=== PATIENT | male | born 1960 | race Caucasian/White ===

== ENCOUNTER → 2016-09-03 | Outpatient (CLI) | payer BC ==
[~2016-09-03] MED LIST: ASPIRIN ENTERI325 M1 PO; ASPIRIN81 M2 PO; IBUPROFEN PO; LORTAB 10-3251 EACH PO; NEXIUM 24HR22.3 MG PO; SUDAFED PO
--- NOTE | ~2016-09-03 | CO ---
Unit #: [id number] #: [id number] Patient: DIA SLAUGHTER [id number] [address] [place], [place] [address] [id number] O MR#: [id number] NAME: DIA SLAUGHTER ROOM: Age: 56 Sex: M Admission Date: 09/03/2016 : 1960 Attending Physician: Alex Amador M.D. Primary Care Physician: Jonh Cintron Consultation Date: 09/03/2016 CONSULTATION REPORT REASON FOR CONSULTATION Preoperative medical evaluation prior to right total knee arthroplasty, scheduled by Dr. Amador for 09/15/2016. HISTORY OF PRESENT ILLNESS The patient is a 56-year-old male, who presents to preprocedure screening for the reasons indicated above. He reports right knee pain with ambulation. He has no pain at the time of this interview as he is seated. He denies chest, arm, back, jaw, neck pain or pressure. Denies dyspnea on exertion, shortness of air, PND, orthopnea, and known history of obstructive sleep apnea. Denies lightheadedness, dizziness, presyncope, syncope, palpitations. He denies a personal history of myocardial infarction, congestive heart failure, CVA, TIA, diabetes, or kidney disease. He has been evaluated by Dr. Amador and scheduled for the above referenced procedure. PAST MEDICAL HISTORY 1. Osteoarthritis. 2. BPH. 3. GERD. 4. Allergic rhinitis. PAST SURGICAL HISTORY 1. Right knee arthroscopy. 2. Please note the patient denies a personal or family history of complications to anesthesia. ALLERGIES Denies latex allergy. No known drug allergies. CURRENT MEDICATIONS 1. Nexium 24 hours, one cap p.o. daily p.r.n. for GERD. 2. Aspirin 81 mg p.o. daily. 3. Advil/Motrin 800 mg p.o. daily p.r.n. pain. 4. Pseudoephedrine HCl 30 mg p.o. daily p.r.n. for allergies. SOCIAL HISTORY Denies tobacco use, etoh use or illicit drug use. FAMILY HISTORY Mother and father both had myocardial infarctions. Sister melanoma. REVIEW OF SYSTEMS A 10-point review of systems is conducted and negative except as indicated Unit #: [id number] #: [id number] Patient: DIA SLAUGHTER under history of present illness above. PHYSICAL EXAMINATION VITAL SIGNS: Temperature 97.5, heart rate 70, respirations 20, blood pressure 165/99, oxygen saturation 95% on room air. GENERAL: Patient is a 56-year-old male awake, alert, in no acute distress. HEENT: Atraumatic, normocephalic. Sclerae anicteric. No discharge from eyes, ears, or nares. LYMPH: No preauricular, postauricular, tonsillar, submental, anterior, posterior, cervical adenopathy. ENDOCRINE: No thyromegaly, thyroid nodules or tenderness. LUNGS: Clear to auscultation all mireles bilaterally without wheezes, rhonchi or rales. HEART: S1, S2. Regular rate and rhythm, without murmur or rub. ABDOMEN: Bowel sounds positive x4. Soft, nontender, nondistended. EXTREMITIES: No edema, cyanosis, or clubbing. MUSCULOSKELETAL: Strength 5/5 all extremities bilaterally to flexion and extension. NEUROLOGIC: Alert and oriented x3. clear. Cranial nerves II-XII are grossly intact. DIAGNOSTIC STUDIES LABORATORY: WBC 5.5, hemoglobin 15.8, hematocrit 46.6, platelet count 172,000. Sodium 136, potassium 4.4, chloride 102, CO2 is 26, glucose 127, BUN 18, creatinine 1.0, calcium 9.7, AST 29, ALT 30, alkaline phosphatase 70, total bilirubin 0.7, total protein 7.5, albumin 4.6. Urinalysis negative with neither microscopic nor culture indicated. MRSA nasal swab report pending at this time. Blood type A positive, antibody screen negative. IMAGING: Two-view chest x-ray report pending at this time. CARDIOVASCULAR: 12-lead EKG normal sinus rhythm, normal ECG. Confirmed report pending at this time. ASSESSMENT AND PLAN The patient is a 56-year-old male who presents to preprocedural screening for: 1. Preoperative medical evaluation prior to right total knee arthroplasty as scheduled by Dr. Amador. The patient's Bear Revised Cardiac Risk Index is equal to 0.4%. This represents the patient's perioperative risk for cardiac , fatal or nonfatal myocardial infarction, cardiopulmonary arrest, arrhythmia and/or pulmonary edema. This has been discussed in detail with the patient and he wishes to proceed with surgery as scheduled at this time. 2. Benign prostatic hypertrophy. The patient is on no medications. Will monitor the patient for postoperative urinary retention. 3. Gastroesophageal reflux disease. I have advised the patient to take NSAIDs with food. Will continue proton pump inhibitor postoperatively. 4. Osteoarthritis. 5. Allergic rhinitis. 6. Elevated blood pressure. Patient does not take antihypertensive medication at this time. Will recommend discontinuation of Sudafed PE postoperatively and monitor blood pressure trend. Thank you for allowing us to participate in the care of this patient. We Unit #: [id number] #: [id number] Patient: DIA SLAUGHTER will gladly follow him for postoperative medical management pending order of Dr. Amador. Dictated by... Magaly Lemos A.P.R.N. for Alex Moore/maximo TD: 09/03/2016 16:25 JOB #: [id number] CONSULTATION REPORT Page 1 of 1 X Magaly Lemos APRN X CONSULTATION REPORT
--- NOTE | ~2016-09-03 | CR63 ---
[facility] A Service of [facility] RADIOLOGY TEXT RESULTS PATIENT: DIA SLAUGHTER LOCATION: [facility] : 58 UNIT #: [id number] AGE: [address]: Alex Amador MD SEX: M ORDER DR: [id number] [facility] [address] [place], [place] [address] [id number] O MR#: [id number] Acc #: [id number] NAME: DIA SLAUGHTER : 1960 SEX: M STUDY DATE/TIME: 09/03/2016 11:19 UNIT: [facility] ROOM: STUDY DESCRIPTION: CR Chest 2 View Attending Physician: Alex Amador M.D. Referring Physician: Alex Amador M.D. Ordering Physician: Alex Amador M.D. Primary Care Physician: Jonh Cintron MEDICAL IMAGING REPORT This report is preliminary unless electronic signature is present EXAM Chest PA and lateral 09/03/2016 HISTORY Osteoarthritis right knee. Preop right total knee replacement. Shortness of breath on exertion today. Smoking history for 3 years. FINDINGS PA and lateral examination of the chest upright shows a good expansion of the parenchyma with a normal distribution of the pulmonary vascularity. There is no indication of congestion, effusion, infiltrate, tumor, or nodular density. The pleural reflections and diaphragmatic contours are normal. The cardiac silhouette and mediastinal anatomy is within normal limits. IMPRESSION Normal chest. Dictated by... Nahid Mckinley M.D. THIS IS AN ELECTRONICALLY VERIFIED REPORT Nahid Mckinley M.D. at 09/04/2016 8:30 AM KRT/to TD: 09/03/2016 16:32 JOB #: [id number] MEDICAL IMAGING REPORT Page 1 of 1 COPY
--- NOTE | ~2016-09-03 | EKG ---
PATIENT: DIA SLAUGHTER UNIT #: [id number] Ventricular Rate: 71 BPM Atrial Rate: 71 BPM P-R Interval: 134 ms QRS Duration: 86 ms Q-T Interval: 386 ms QTC Calculation(Bezet): 419 ms P [place]: 36 degrees Calculated R [place]: 36 degrees Calculated T [place]: 24 degrees Diagnosis Line: Normal sinus rhythm Diagnosis Line: Normal ECG Diagnosis Line: No previous ECGs available Diagnosis Line: Confirmed by ARIAN LESTER MD ([id number]) on 09/03/2016 Diagnosis Line: 10:44:16 PM INTERPRETING MD: TAYLER RADER
[2016-09-03 11:14] LABS: HEMATOCRIT 46.6 % (38.0-50.0); HEMOGLOBIN 15.8 gm/dL (13.0-16.0); MEAN CELL VOLUME 83.7 FL (83-96); MEAN CORPUSCULAR HEMOGLOBIN 28.3 PG (28-34); MEAN CORPUSCULAR HGB CONC 33.8 g/dL (30-36); MEAN PLATELET VOLUME 8.1 FL (6.5-11.5); RED BLOOD COUNT 5.57 X10e (3.90-5.60); RED CELL DISTRIBUTION WIDTH 13.4 % (11.0-15.5); WHITE BLOOD COUNT 5.5 X10e3 (4.0-10.5)
[2016-09-03 11:27] LABS: URINE APPEARANCE CLEAR; URINE BILIRUBIN NEG (NEG); URINE BLOOD NEG (NEG); URINE COLOR YELLOW; URINE GLUCOSE NORM (NORM); URINE KETONE NEG (NEG); URINE LEUKOCYTE ESTERASE NEG (NEG); URINE NITRATE NEG (NEG); URINE PROTEIN NEG (NEG); URINE SPECIFIC GRAVITY 1.005 (1.003-1.035); URINE UROBILINOGEN NORM (NORM)
[2016-09-03 11:28] LABS: CULTURE INDICATED? NO; URINE SOURCE CLEAN CATCH
[2016-09-03 11:47] LABS: ALBUMIN SERUM 4.6 g/dL (3.5-5.0); BILIRUBIN,TOTAL 0.7 mg/dL (0.2-2.0); CALCIUM SERUM 9.7 mg/dL (8.4-10.2); GLOM FILT RATE Estimated 83.2 mL/min (>60); POTASSIUM 4.4 mmol/L (3.5-5.1); PROTEIN TOTAL SERUM 7.5 g/dL (6.0-8.3)
== END | disposition home or self-care (01) ==
LOC: CAMB 10:00
PROVIDERS: Orthopaedic Surgery
DX: Z01.818 Encounter for other preprocedural examination (principal); M17.11 Unilateral primary osteoarthritis, right knee
CPT/HCPCS: 36415; 71020; 80053; 81003; 85027; 86850; 86900; 86901; 87070; 93005

== ENCOUNTER 2016-09-15 07:45 | Inpatient (IN) | payer BC ==
--- NOTE | ~2016-09-15 | OR ---
Unit #: [id number] #: [id number] Patient: DIA SLAUGHTER [id number] [address] [address] [id number] I MR#: [id number] NAME: DIA SLAUGHTER ROOM: 453 Date of Procedure: 09/15/2016 Admission Date: 09/15/2016 Surgeon: Alex Amador M.D. : 1960 Attending Physician: Alex Amaodr M.D. Referring Physician: Alex Amador M.D. Primary Care Physician: Jonh Cintron OPERATIVE REPORT PREOPERATIVE DIAGNOSIS Primary localized osteoarthritis of the right knee. POSTOPERATIVE DIAGNOSIS Primary localized osteoarthritis of the right knee. PROCEDURE PERFORMED Right total knee. ASSISTANTS Victoria Esquivel and Alexx Pittman. ANESTHESIA Adductor canal block plus general. ESTIMATED BLOOD LOSS 100 mL. INDICATIONS FOR PROCEDURE This is a 56-year-old with severe pain in the right knee. The pain limits his walking and standing, interrupts his sleep. X-ray show he has [id number] with subchondral sclerosis and periarticular osteophytes. He has tried injections and anti-inflammatories with no relief of his discomfort. DESCRIPTION OF PROCEDURE The patient was brought to the operating room, given an adductor canal block. He was then given 2 g of Ancef. This will be continued postop, but discontinued within 23 hours the start time of surgery. He was then given a general anesthetic. Tourniquet was placed around the right thigh. The right leg was prepped and draped in a sterile fashion. Tourniquet was inflated to 250. A straight anterior skin incision was made. The subcutaneous dissected away and medial arthrotomy performed. The patella was slid to the side. Osteophytes were removed from the femur. The intramedullary guide was used and a 6-degree valgus cut was made on the distal femur. The femur was sized and found to be a size 4. The anterior-posterior cutting block was applied. Rotation was checked in the knee. Anterior and posterior cuts were made along with the chamfer cuts. Proximal tibial cut was made using a 0-degree cutting block. It was sized at a 3. The remaining meniscal fragments were debrided. Posterior condylar osteophytes were removed. The posterior capsule and the periosteum were injected with a ropivacaine. The tibia was sized at a 3. Unit #: [id number] #: [id number] Patient: DIA SLAUGHTER Trial 3 tibia with an 8 mm insert trial was positioned. Trial femur was applied. The drill holes were made for lugs on the femoral component. The knee came to full extension and good stability in extension and flexion. Rotation of the tibia was marked and the external alignment guide showed appropriate alignment of the limb. The patella was grasped with 2 towel clips, measured at 23 mm thick, cut smooth at 14, and a 38 patella was the appropriate size. The 3 drill holes were made. Trial patella applied and it tracked properly. We then removed all the trials, used the drill and punch for the tibial tray. The knee was irrigated and dried while the cement was mixed. Then, all 3 components were cemented simultaneously. Once again, it was a size 4 femur, size 3 tibia, and a 38 patella from the [employer] P[employer] Sigma Knee system. After the cement was hardened, the 8 mm insert was found to be the appropriate thickness, so it was opened and applied to the tray. The rest of the ropivacaine mixture was injected. The tourniquet was released. Hemostasis was obtained. Wound was irrigated with Betadine and bacitracin, and closed using 0 Ethibond in the arthrotomy, 0 and 2-0 Vicryl in the subcutaneous and the skin was closed with Prineo Dermabond closure. liaison inspection laboratory assistant, Victoria Esquivel was present throughout the entire case. Dictated by... Alex Clarke/zakiya TD: 09/16/2016 02:58 JOB #: [id number] OPERATIVE REPORT Page 1 of 1 X Alex Amador MD X PROCEDURE OPERATIVE NOTE
--- NOTE | ~2016-09-15 | DS ---
Unit #: [id number] #: [id number] Patient: DIA DOUGLAS [id number] [address] [address] [id number] MR#: [id number] NAME: DIA DOUGLAS ROOM: 453 Age: 56 Sex: M Admission Date: 09/15/2016 : 1960 Discharge Date: 09/16/2016 Attending Physician: Alex Amador M.D. Referring Physician: Alex Amador M.D. Primary Care Physician: Jonh Cintron DISCHARGE SUMMARY ADMITTING DIAGNOSIS Right knee osteoarthritis. DISCHARGE DIAGNOSIS Right knee osteoarthritis. HOSPITAL COURSE On 09/15/2016, Mr. Douglas underwent a right total knee arthroplasty. He tolerated the procedure well. He was transported to the 4th floor for physical therapy, anticoagulation therapy and medical management. The patient is doing well and is ready to be discharged. DISPOSITION Stable. DISCHARGE Discharge home with [facility] health. MEDICATIONS ON DISCHARGE Routine home meds in addition to [place] 10/325 and aspirin 325 mg p.o. b.i.d. x4 weeks. FOLLOWUP AND INSTRUCTIONS Mr. Douglas is going to be discharged home. The patient is on aspirin for DVT prophylaxis. No labs are warranted at this time. Physical therapy is to be done for active range of motion and strengthening and progressive ambulation. The patient will be on a walker for four weeks and a cane for an additional two weeks. Follow up appointment with Dr. Amador is in six weeks. Please call our office for that appointment date and time. Dictated by... Duane Orozco for Alex Amador M.D. ROCÍO/yaz TD: 09/16/2016 12:05 JOB #: [id number] Unit #: [id number] #: [id number] Patient: DIA DOUGLAS DISCHARGE SUMMARY Page 1 of 1 X Victoria Esquivel DISCHARGE SUMMARY
[2016-09-15 09:01] LABS: PROTHROMBIN TIME (PATIENT) 10.6 SECONDS (9.6-11.5)
[2016-09-15] MEDS ORDERED: ASPIRIN81 M2 PO (10:19)
[2016-09-15] MEDS ORDERED: IBUPROFEN PO (10:19)
[2016-09-15] MEDS ORDERED: NEXIUM 24HR22.3 MG PO (10:19)
[2016-09-15] MEDS ORDERED: SUDAFED PO (10:21)
[2016-09-16 03:59] LABS: HEMATOCRIT 40.4 % (38.0-50.0); HEMOGLOBIN 13.2 gm/dL (13.0-16.0); MEAN CELL VOLUME 85.6 FL (83-96); MEAN CORPUSCULAR HGB CONC 32.7 g/dL (30-36); MEAN PLATELET VOLUME 8.5 FL (6.5-11.5); RED BLOOD COUNT 4.72 X10e (3.90-5.60); RED CELL DISTRIBUTION WIDTH 13.5 % (11.0-15.5); WHITE BLOOD COUNT 11.8 X10e3 (4.0-10.5)
[2016-09-16 04:22] LABS: CALCIUM SERUM 8.4 mg/dL (8.4-10.2); GLOM FILT RATE Estimated 83.2 mL/min (>60); MAGNESIUM 1.8 mg/dL (1.6-3.0); POTASSIUM 4.4 mmol/L (3.5-5.1)
[2016-09-16] MEDS ORDERED: ASPIRIN ENTERI325 M1 PO (11:02)
[2016-09-16] MEDS ORDERED: LORTAB 10-3251 EACH PO (11:04)
== END 2016-09-16 12:30 | disposition home health service (06) | DRG 470 ==
LOC: CSUR 07:45 → CEDOF 10:40 → CSUR 11:00 → CEDOF 13:53 → C4B 13:53 → CSUR 13:53 → CEDOF 13:55 → C4B 13:55
PROVIDERS: Orthopaedic Surgery; Physician Assistant Medical
PROC: 0SRC0J9 Replacement of Right Knee Joint with Synthetic Substitute, Cemented, Open Approach (ICD-10-PCS; principal; 2016-09-15 10:00)
DX: M17.11 Unilateral primary osteoarthritis, right knee (principal); N40.0 Benign prostatic hyperplasia without lower urinary tract symptoms
CPT/HCPCS: 80048; 83735; 85027; 85610; 94760; 94761; 97110; 97116; 97162; C1776; G8978-GP; G8979-GP; G8980-GP; J0131; J0171; J0690; J0735; J1100; J1170; J1885; J2175; J2250; J2370; J2405; J2795; J3010